=== PATIENT | male | born 1965 | race Caucasian/White ===

== ENCOUNTER 2020-11-22 15:29 | Emergency (ER) | payer OTHER ==
[2020-11-22 17:41] LABS: BASOPHIL 0.3 % (0-2); EOSINOPHIL 0.1 % (0-5); HCT 47.4 % (42.0-52.0); HGB 15.6 g/dl (13.2-18.0); LYMPHOCYTE 7.9 % (15-48); MCH 28.8 pg (25.0-31.0); MCHC 32.9 g/dL (32.0-36.0); MCV 87.6 fL (78.0-100.0); MONOCYTE 3.9 % (0-12); MPV 11.8 fL (6.0-9.5); NEUTROPHIL 87.5 % (41-80); NRBC 0; PLT 286 K/uL (150-400); RBC 5.41 M/uL (4.70-6.00); RDW 13.7 % (11.5-14.0); WBC 11.6 K/uL (4.0-10.5)
[2020-11-22 17:52] LABS: ALBUMIN 4.1 g/dL (3.4-5.0); BILIRUBIN - TOTAL 0.5 mg/dL (0.2-1.0); BUN/CREAT RATIO (CALC) 17.1 RATIO; CREATININE 0.82 mg/dL (0.67-1.17); GLOBULIN (CALCULATION) 3.5 g/dL; POTASSIUM 4.2 mmol/L (3.5-5.1); TOTAL PROTEIN 7.6 g/dL (6.4-8.2)
[2020-11-22] MEDS ORDERED: CLARITIN10 MG PO (20:33)
[2020-11-22] MEDS ORDERED: MUCINEX 600MG600 MG PO (20:33)
[2020-11-22 22:01] LABS: CORONAVIRUS 2019 SARS-COV-2 NEGATIVE (NEGATIVE); INFLUENZA A NAA NEGATIVE (NEGATIVE)
== END 2020-11-22 22:05 | disposition other institution (70) ==
LOC: FER 15:29
PROVIDERS: Emergency Medicine; Nurse Practitioner Family
DX: R51.9 Headache, unspecified (principal); R26.89 Other abnormalities of gait and mobility; R11.2 Nausea with vomiting, unspecified; R73.9 Hyperglycemia, unspecified; I45.2 Bifascicular block; F17.200 Nicotine dependence, unspecified, uncomplicated; Z20.822 Contact with and (suspected) exposure to COVID-19; Z98.890 Other specified postprocedural states; Z79.899 Other long term (current) drug therapy
CPT/HCPCS: 36415; 70450; 80053; 84484; 85025; 93005; J2405; U0002